=== PATIENT | female | born 1985 ===

== ENCOUNTER 2021-04-03 05:33 | Emergency (ER) | payer MEDICAID, OTHER ==
[2021-04-03 06:57] VITALS: BP 130/83
[2021-04-03] MEDS ORDERED: diphenhdrAMINE HCL 25 MG CAP PO ONE (07:00)
== END 2021-04-03 07:14 | disposition home or self-care (01) ==
LOC: ER 05:33
DX: O26.892 Other specified pregnancy related conditions, second trimester (principal); F41.8 Other specified anxiety disorders; O99.332 Smoking (tobacco) complicating pregnancy, second trimester; F17.210 Nicotine dependence, cigarettes, uncomplicated; Z3A.14 14 weeks gestation of pregnancy
CPT/HCPCS: 99282; J7030